=== PATIENT | female | born 1980 | race Caucasian/White ===

== ENCOUNTER 2016-11-26 19:17 | Emergency (ER) | payer BC, OTHER ==
[2016-11-26 19:27] VITALS: BP 104/65; PULSE 93; TEMP 97.9; BMI 23.4
[2016-11-26] MEDS ORDERED: PSEUDOEPHEDRINE HCL 30 MG TABLET PO ONE (21:37)
[2016-11-26] MEDS ORDERED: guaiFENesin/D-METHORPHAN HB 10 ML UNIT-DOSE CUPS PO ONE (21:38)
--- NOTE | 2016-11-26 21:39 | PDOC ---
History of Present Illness - General Chief Complaint: Cold Symptoms Stated Complaint: COUGH Time Seen by Provider: 11/26/16 21:35 History Source: Patient Exam Limitations: No Limitations - History of Present Illness Initial Comments: 11/26/16 21:35 36 year old female presents with runny nose, nasal congestion and productive cough x 1 week. Denies fever, chills, chest pain or shortness of breath. Using flonase, and zyrtec. Timing/Duration: reports: week Severity: reports: moderate Possible Cause: Yes: allergen exposure Modifying Factors: improves with: other (nose spray and zyrtec) Associated Symptoms: reports: fever/chills Aspirin Received prior to arrival: Yes: no aspirin today ASA Contraindications(Core Measure): No: Allergy Beta Chacha Contraindications(Core Measure): Yes: Not Prescribed Beta Chacha Given by EMS(Core Measure): No Beta Chacha Taken at Home(Core Measure): No Beta Chacha Not Indicated at this Time(Core Measure): No Past History - Travel Traveled outside of the country in the last 30 days: No Close contact w/someone who was outside of country & ill: No - Past Medical History Allergies/Adverse Reactions: Allergies Allergy/AdvReac Type Severity Reaction Status Date / Time nitrofurantoin Allergy Verified 11/26/16 19:28 [From Macrobid] nitrofurantoin Allergy Verified 11/26/16 19:28 macrocrystalline [From Macrobid] Home Medications: Ambulatory Orders Desloratadine/Pseudoephedrine [Clarinex-D 12 Hour Tablet] 1 each PO BID #15 tbmp.12hr 11/26/16 Levothyroxine [Synthroid -] 25 mcg PO DAILY 11/26/16 Thyroid Disease: Yes - Immunization History Immunization Up to Date: Yes - Psycho/Social/Smoking Cessation Hx Suicidal Ideation: No Smoking History: Never smoked Have you smoked in the past 12 months: No Information on smoking cessation initiated: No Hx Alcohol Use: No Drug/Substance Use Hx: No Substance Use Type: None Respiratory Specific PMHX - Complaint Specific PMHX Angina: No Bronchitis: No Pneumonia: No Pulmonary Embolus: No TB (Tuberculosis): No Review of Systems - Review of Systems Able to Perform ROS?: Yes Is the patient limited Thai proficient: No Constitutional: No: Chills, Fever HEENTM: Yes: Ear Pain, Nose Congestion. No: Blurred Vision, Nose Pain, Throat Pain Respiratory: Yes: Cough. No: Shortness of Breath Cardiac (ROS): No: Chest Pain ABD/GI: No: Difficulty Swallowing : No: Incontinence, Urgency Musculoskeletal: No: Back Pain, Gout, Joint Pain Integumentary: No: Lesions Neurological: No: Headache, Paresthesia Psychiatric: No: Frequent Crying, Stressors *Physical Exam - Vital Signs Last Vital Signs Temp Pulse Resp BP Pulse Ox 97.9 F 93 H 18 104/65 99 11/26/16 19:20 11/26/16 19:20 11/26/16 19:20 11/26/16 19:20 11/26/16 19:20 - Physical Exam General Appearance: Yes: Nourished, Appropriately Dressed. No: Apparent Distress HEENT: positive: EOMI, MOR, TMs Normal, Pharynx Normal, Nasal Congestion, Rhinorrhea. negative: Tonsillar Exudate, Tonsillar Erythema Neck: positive: Supple. 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, Fully Oriented, Normal Response, Motor Strength 5/5 Medical Decision Making - Medical Decision Making 11/26/16 22:20 36 year old female presents with seasonal allergies sudafed 30 mg po given robitussin dm *DC/Admit/Observation/Transfer Diagnosis at time of Disposition: Seasonal allergies Qualifiers: Allergic rhinitis trigger: unspecified Qualified Code(s): J30.2 - Other seasonal allergic rhinitis - Discharge Dispostion Disposition: HOME Condition at time of disposition: Good Admit: No - Prescriptions Prescriptions: Desloratadine/Pseudoephedrine [Clarinex-D 12 Hour Tablet] 1 each PO BID #15 tbmp.12hr - Patient Instructions Printed Discharge Instructions: How to Avoid a Cold or Flu, DI for Viral Upper Respiratory Infection -- Adult - Post Discharge Activity Work/School Note: Back to Work
[2016-11-26] MEDS ORDERED: guaiFENesin/D-METHORPHAN HB 10 ML UNIT-DOSE CUPS ONE (21:40)
[2016-11-26] MEDS ORDERED: PSEUDOEPHEDRINE HCL 60 MG TABLET ONE (21:41)
== END 2016-11-26 22:29 | disposition home or self-care (01) ==
LOC: JERFT 19:17
DX: J30.2 Other seasonal allergic rhinitis (principal)
CPT/HCPCS: 99281-25

== ENCOUNTER 2018-10-31 16:47 | Emergency (ER) | payer OTHER ==
[2018-10-31 17:02] VITALS: BP 123/65; PULSE 98; TEMP 98.3; BMI 22.4
--- NOTE | 2018-10-31 17:56 | PDOC ---
History of Present Illness - General Chief Complaint: Pain Stated Complaint: KNEE SWELLING Time Seen by Provider: 10/31/18 17:19 History Source: Patient Exam Limitations: Clinical Condition - History of Present Illness Initial Comments: 10/31/18 17:59 Patient with history of hypothyroidism on Synthroid present with complaint of left knee pain which she described as aching for 4 out of 10 pain to lateral aspect of left knee. Patient denies trauma or injury to knee. Denies calf pain or claudications. Denies left swelling, SOB, chest pain, palpitations. 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 Timing/Duration: other (3 days) Past History - Past Medical History Allergies/Adverse Reactions: Allergies Allergy/AdvReac Type Severity Reaction Status Date / Time nitrofurantoin Allergy Verified 10/31/18 16:59 [From Macrobid] nitrofurantoin Allergy Verified 10/31/18 16:59 macrocrystalline [From Macrobid] Home Medications: Ambulatory Orders Desloratadine/Pseudoephedrine [Clarinex-D 12 Hour Tablet] 1 each PO BID #15 tbmp.12hr 11/26/16 Levothyroxine [Synthroid -] 25 mcg PO DAILY 11/26/16 Naproxen 500 mg PO BID PRN #20 tablet 10/31/18 Cancer: Yes COPD: No Thyroid Disease: Yes - Immunization History Immunization Up to Date: Yes - Suicide/Smoking/Psychosocial Hx Smoking History: Never smoked Have you smoked in the past 12 months: No Hx Alcohol Use: No Drug/Substance Use Hx: No Substance Use Type: None Review of Systems - Review of Systems Able to Perform ROS?: Yes Is the patient limited [place]se proficient: No Constitutional: No: Weakness HEENTM: No: Symptoms Reported Respiratory: No: Symptoms reported Cardiac (ROS): No: Symptoms Reported ABD/GI: No: Symptoms Reported Musculoskeletal: Yes: See HPI, Joint Pain (left knee), Muscle Pain (lateral aspect of left knee). No: Muscle Weakness, Joint Stiffness Integumentary: Yes: See HPI, Bruising (left lateral knee) Neurological: No: Numbness, Paresthesia, Tingling All Other Systems: Reviewed and Negative *Physical Exam - Vital Signs Last Vital Signs Temp Pulse Resp BP Pulse Ox 98.3 F 98 H 18 123/65 99 10/31/18 16:57 10/31/18 16:57 10/31/18 16:57 10/31/18 16:57 10/31/18 16:57 - Physical Exam Comments: 10/31/18 17:44 GENERAL: Well developed, well nourished. Awake and alert. No acute distress. CARDIOVASCULAR: Regular rate and rhythm. No murmurs, rubs, or gallops. PULMONARY: No evidence of respiratory distress. Lungs clear to auscultation bilaterally. No wheezing, rales or rhonchi. MUSCULOSKELETAL : Exam significant for mild bruising to lateral aspect of left knee and proximal leg. no extravasation of blodd.. no calf tenderness. negative horman's sign. no peripheral edema. Patient ambulating normal without difficulty. no calf tenderness. No tenderness to popliteal fossa. SKIN: Warm and dry. Normal capillary refill. mild bruising to lateral aspect of left knee. NEUROLOGICAL: Alert, awake, appropriate. No motor deficits in the lower extremities. Gait is normal without ataxia. PSYCHIATRIC: Cooperative. Good eye contact. Appropriate mood and affect. 10/31/18 18:17 General Appearance: Yes: Nourished, Appropriately Dressed. No: Apparent Distress ED Treatment Course - RADIOLOGY Radiology Studies Ordered: Category Date Time Status KNEE 3 POS-LEFT [RAD] Stat Radiology 10/31/18 17:39 Ordered Medical Decision Making - Medical Decision Making 10/31/18 18:07 Patient with history of hypothyroidism on Synthroid present with complaint of left knee pain which she described as aching for 4 out of 10 pain to lateral aspect of left knee. Patient denies trauma or injury to knee. Denies calf pain or claudications. Exam significant for mild bruising to lateral aspect of left knee and proximal leg. no extravasation of blood. no calf tenderness. negative horman's sign. no peripheral edema. Patient ambulating normal without difficulty. no calf tenderness. No tenderness to popliteal fossa. X-ray of left knee shows no acute pathology. Patient symptoms likely knee sprain. left knee wrapped with eileen bandage. Patient stable for discharge on naproxen with orthopedics follow-up as needed *DC/Admit/Observation/Transfer Diagnosis at time of Disposition: Left knee sprain Qualifiers: Encounter type: initial encounter Involved ligament of knee: lateral collateral ligament Qualified Code(s): S83.422A - Sprain of lateral collateral ligament of left knee, initial encounter - Discharge Dispostion Disposition: HOME Condition at time of disposition: Stable Decision to Admit order: No - Prescriptions Prescriptions: Naproxen 500 mg PO BID PRN #20 tablet PRN Reason: pain - Referrals Referrals: Patrick Han [Primary Care Provider] - - Patient Instructions Printed Discharge Instructions: How to Use an Elastic Bandage-Knee Sprain, DI for Knee Sprain Additional Instructions: Your x-rays was normal. apply warm compress to left knee as needed for pain. take prescribed medication as needed for pain. Come back to ED if worsening pain otherwise follow-up with referred orthopedics if no improvement in 4 days - Post Discharge Activity Forms/Work/School Notes: Back to Work
== END 2018-10-31 18:19 | disposition home or self-care (01) ==
LOC: JER 16:47 → JERFT 16:47
DX: S83.422A Sprain of lateral collateral ligament of left knee, initial encounter (principal); X58.XXXA Exposure to other specified factors, initial encounter; Y93.89 Activity, other specified; Y92.89 Other specified places as the place of occurrence of the external cause; Y99.8 Other external cause status; E03.9 Hypothyroidism, unspecified
CPT/HCPCS: 73562-TC-LT-FY; 99281-25

== ENCOUNTER 2022-08-13 14:50 | Emergency (ER) | payer OTHER ==
[2022-08-13 15:14] VITALS: BP 111/52; PULSE 98; RESP 20; TEMP 98.5; BMI 22.4
[2022-08-13] MEDS ORDERED: ACETAMINOPHEN 500 MG TABLET (FP) PO ONE (15:41)
[2022-08-13] MEDS ORDERED: ACETAMINOPHEN 500 MG TABLET (FP) ONE (15:43)
[2022-08-13] MEDS ORDERED: CEPHALEXIN MONOHYDRATE 500 MG CAPSULE (UD) PO ONE (16:04)
[2022-08-13] MEDS ORDERED: SULFAMETHOXAZOLE/TRIMETHOPRIM 800MG/160MG D.S. TABLET PO ONE (16:04)
[2022-08-13] MEDS ORDERED: LIDOCAINE HCL 1%, 10 MG/ML (50 mL VIAL) SQ ONE (16:08)
[2022-08-13] MEDS ORDERED: LIDOCAINE HCL 1%, 10 MG/ML (10ML VIAL) MDV ONE (16:09)
[2022-08-13] MEDS ORDERED: CEPHALEXIN MONOHYDRATE 500 MG CAPSULE (UD) ONE (17:07)
[2022-08-13] MEDS ORDERED: SULFAMETHOXAZOLE/TRIMETHOPRIM 800MG/160MG D.S. TABLET ONE (17:07)
== END 2022-08-13 17:13 | disposition home or self-care (01) ==
LOC: JERFT 14:50
PROC: 0H96XZZ Drainage of Back Skin, External Approach (ICD-10-PCS; principal; 2022-08-13)
DX: L02.212 Cutaneous abscess of back [any part, except buttock and flank] (principal)
CPT/HCPCS: 84703; 87070; 87186; 87205; 99283-25

== ENCOUNTER 2022-08-14 18:19 | Emergency (ER) | payer OTHER ==
[2022-08-14 18:28] VITALS: BP 110/71; PULSE 99; RESP 17; TEMP 98.3; BMI 22.4
== END 2022-08-14 20:28 | disposition home or self-care (01) ==
LOC: JERFT 18:19
DX: Z48.00 Encounter for change or removal of nonsurgical wound dressing (principal)
CPT/HCPCS: 99281-25

== ENCOUNTER 2022-08-17 15:46 | Emergency (ER) | payer OTHER ==
[2022-08-17 16:13] VITALS: BP 120/77; PULSE 95; RESP 18; TEMP 98.2; BMI 22.4
== END 2022-08-17 17:01 | disposition home or self-care (01) ==
LOC: JERFT 15:46
DX: Z48.00 Encounter for change or removal of nonsurgical wound dressing (principal)
CPT/HCPCS: 99281-25

== ENCOUNTER 2023-06-04 21:44 | Emergency (ER) | payer OTHER ==
[2023-06-04 21:48] VITALS: BP 114/59; PULSE 68; RESP 18; TEMP 98.4; BMI 22.4
[2023-06-04] MEDS ORDERED: IBUPROFEN 600 MG TABLET (FP) PO ONE ×2 (22:12→22:17)
[2023-06-04] MEDS ORDERED: ACETAMINOPHEN 500 MG TABLET (FP) PO ONE (22:12)
[2023-06-04] MEDS ORDERED: ACETAMINOPHEN 500 MG TABLET (FP) ONE (22:17)
== END 2023-06-04 22:44 | disposition home or self-care (01) ==
LOC: JERFT 21:44
DX: S46.912A Strain of unspecified muscle, fascia and tendon at shoulder and upper arm level, left arm, initial encounter (principal); M77.02 Medial epicondylitis, left elbow; X50.9XXA Other and unspecified overexertion or strenuous movements or postures, initial encounter; Y99.0 Civilian activity done for income or pay; Y92.9 Unspecified place or not applicable
CPT/HCPCS: 99283-25

== ENCOUNTER 2024-01-10 18:30 | Emergency (ER) | payer OTHER ==
[2024-01-10 18:51] VITALS: BP 117/57; PULSE 64; RESP 20; TEMP 97.8; BMI 23.0
[2024-01-10 19:53] LABS: PH,URINE 8.5 (5.0-8.0); URINE APPEARANCE CLEAR; URINE BILIRUBIN NEGATIVE (NEGATIVE); URINE COLOR YELLOW; URINE GLUCOSE (UA) NEGATIVE (NEGATIVE); URINE KETONE NEGATIVE (NEGATIVE); URINE LEUK ESTERASE NEGATIVE (NEGATIVE); URINE NITRITE NEGATIVE (NEGATIVE); URINE PROTEIN NEGATIVE (NEGATIVE); URINE UROBILINOGEN 0.2 mg/dL (0.2-1.0)
[2024-01-10 19:55] LABS: HCG,QUALITATIVE URINE Negative
[2024-01-10] MEDS ORDERED: ACETAMINOPHEN INJECTION 100 ML IVPB ONE (20:39)
[2024-01-10 21:03] LABS: EPI CELLS 5.6 /uL (0-25.1); HYALINE CASTS 0.14 /uL (0-3.1); URINE BACTERIA 6.6 /uL (0-1359); URINE RBC 11.8 /uL (0-23.9); URINE WBC 2.7 /uL (0-25.8)
[2024-01-10] MEDS: ACETAMINOPHEN 1000 MG/100 ML BAG IVPB ONE (21:25)
[2024-01-10] MEDS ORDERED: ACETAMINOPHEN 325 MG TABLET (FP) ONE (21:27)
[2024-01-10] MEDS: ACETAMINOPHEN 325 MG TABLET (FP) PO ONE (21:35)
[2024-01-10 21:37] LABS: BASO % 0.6 % (0-2.0); EOS % 1.4 % (0-4.5); HEMATOCRIT 35.6 % (32.4-45.2); HEMOGLOBIN 11.8 GM/dL (10.7-15.3); LYMPH % 23.2 % (8-40); MCHC 33.2 g/dl (32.0-36.0); MEAN CELL VOLUME 84.2 fl (80-96); MEAN PLT VOLUME 9.9 fl (7.5-11.1); MONO % 7.9 % (3.8-10.2); NEUT % 66.9 % (42.8-82.8); PLATELET COUNT 142 10^3/uL (134-434); RBC 4.22 M/mm3 (3.60-5.2); RDW 16.4 % (11.6-15.6); WHITE BLOOD COUNT 6.1 K/mm3 (4.0-10.0)
[2024-01-10 21:54] LABS: ALBUMIN 3.9 g/dl (3.4-5.0)
[2024-01-10 21:57] LABS: CREATININE 0.6 mg/dL (0.55-1.3)
[2024-01-10 21:59] LABS: BILIRUBIN,TOTAL 0.3 mg/dL (0.2-1); TOT PROT 6.7 g/dl (6.4-8.2)
[2024-01-11] MEDS ORDERED: SIMETHICONE 80 MG TAB.CHEW (FP) ONE (00:01)
[2024-01-11] MEDS: SIMETHICONE 80 MG TAB.CHEW (FP) PO ONE (00:07)
== END 2024-01-11 00:08 | disposition home or self-care (01) ==
LOC: JER 18:30
DX: R14.0 Abdominal distension (gaseous) (principal); K59.00 Constipation, unspecified; R35.0 Frequency of micturition; M54.9 Dorsalgia, unspecified
CPT/HCPCS: 36415; 74176-TC; 76830-TC; 80053; 81003; 84703; 85025; 87086; 99285-25